=== PATIENT | female | born 1950 | race Caucasian/White ===

== ENCOUNTER 2018-11-13 22:49 | Emergency (ER) | payer MEDICARE ==
[2018-11-13 23:25] VITALS: TEMP 97.7
--- NOTE | 2018-11-14 00:08 | ED.PDOC ---
History of Present Illness - General Chief Complaint: Drug or Alcohol Abuse Stated Complaint: intoxicated "I dont feel good" Time Seen by Provider: 11/13/18 23:13 Source: patient, RN notes reviewed, Vital Signs reviewed Exam Limitations: no limitations - History of Present Illness Initial Comments: Says she didn't feel well after drinking earlier tonight & that he rblood sugar was in the 170s but that she feels fine now. Reportedly she went to sleep earlier after drinking. Her family found her & that that her glucose was low so they called the ambulance. Her blood sugar was not found to be low. She denies any pain, N/V or recent illnesses. Timing/Duration: 1-3 hours Severity: mild Improving Factors: nothing Worsening Factors: nothing Associated Symptoms: denies symptoms Allergies/Adverse Reactions: Allergies NO KNOWN ALLERGY Allergy (Verified 11/14/18 00:21) Home Medications: Ambulatory Orders Hydrochlorothiazide 11/14/18 Insulin Glargine [Basaglar Kwikpen] 11/14/18 Lisinopril 11/14/18 Simvastatin 11/14/18 Sitagliptin Phosphate [Januvia] 11/14/18 metFORMIN HCL [Glucophage] 11/14/18 Review of Systems - Review of Systems Constitutional: States: see HPI EENTM: States: no symptoms reported Respiratory: States: no symptoms reported Cardiology: States: no symptoms reported Gastrointestinal/Abdominal: States: no symptoms reported Genitourinary: States: no symptoms reported Musculoskeletal: States: no symptoms reported Skin: States: no symptoms reported Neurological: States: no symptoms reported Hematologic/Lymphatic: States: no symptoms reported Past Medical History (General) - Patient Medical History Hx Seizures: No Hx Stroke: No Hx Dementia: No Hx Asthma: No Hx of COPD: No Hx Cardiac Disorders: No Hx Congestive Heart Failure: No Hx Pacemaker: No Hx Hypertension: Yes Hx Thyroid Disease: No Hx Diabetes: Yes - IDDM Hx Gastroesophageal Reflux: No Hx Renal Disease: No Hx Cancer: No Hx of HIV: No Hx Hepatitis C: No Hx MRSA: No Surgical History: other - Vaccination History Hx Tetanus, Diphtheria Vaccination: Yes Hx Influenza Vaccination: Yes Hx Pneumococcal Vaccination: Yes Immunizations Up to Date: Yes - Social History Hx Tobacco Use: No Hx Chewing Tobacco Use: No Hx Alcohol Use: Yes - rarely Hx Substance Use: No Hx Substance Use Treatment: No Hx Depression: No Feels Threatened In Home Enviroment: No Feels Threatened In a Relationship: No Hx Physical Abuse: No Hx Emotional Abuse: No Hx Suspected Abuse: No - Activities of Daily Living Hospice Agency (if applicable):: None - Female History Patient is a Female of Child Bearing Age (10 -59 yrs old): No - Triage Comment ED Triage Comment: pt is inebriated, has slight slurred speech, AAOX4, denies pain or discomfort, Family Medical History - Family History Mother Family History: No Known Living Status: Physical Exam - Physical Exam General Appearance: Alert, Comfortable, No apparent distress, Well Developed, Well Groomed Eye Exam: bilateral normal Ears, Nose, Throat: hearing grossly normal, normal ENT inspection Neck: supple, normal inspection Respiratory: normal breath sounds, no respiratory distress Cardiovascular/Chest: regular rate, rhythm, no edema Gastrointestinal/Abdominal: non tender, soft, no organomegaly Extremity: normal range of motion, normal inspection 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 Rouses easily. Says she feels well. - Results/Orders Results/Orders: WBC 10 Glu 178 CO2 21 UA - no ketones - EKG/XRAY/CT CT Ordered: No Departure - Departure Clinical Impression: Hyperglycemia Time of Disposition: 00:59 Disposition: Discharge to Home or Self Care Condition: Good Departure Forms: ED Discharge - Pt. Copy, Patient Portal Self Enrollment Instructions: DI for Alcohol Abuse and Alcoholism, Hyperglycemia, Adult (DC) Diet: resume usual diet Home Medications: Ambulatory Orders Hydrochlorothiazide 11/14/18 Insulin Glargine [Basaglar Kwikpen] 11/14/18 Lisinopril 11/14/18 Simvastatin 11/14/18 Sitagliptin Phosphate [Januvia] 11/14/18 metFORMIN HCL [Glucophage] 11/14/18 Additional Instructions: follow up with your doctor on Thursday
[2018-11-14 01:03] VITALS: BP 131/81; O2SAT 96
== END 2018-11-14 01:03 | disposition home or self-care (01) ==
LOC: ER 22:49
DX: E11.65 Type 2 diabetes mellitus with hyperglycemia (principal); F10.129 Alcohol abuse with intoxication, unspecified; I10 Essential (primary) hypertension; Z79.4 Long term (current) use of insulin; Z79.899 Other long term (current) drug therapy